=== PATIENT | female | born 1980 | race Caucasian/White ===

== ENCOUNTER 2020-04-27 12:00 | Outpatient (CLI) | payer OTHER | END 2020-04-27 23:59 | disposition home or self-care (01) | LOC: LAB.R 12:00 | PROVIDERS: ATTEND Midwife | DX: Z34.01 Encounter for supervision of normal first pregnancy, first trimester (principal) | CPT/HCPCS: 84144; 84702 ==

== ENCOUNTER 2020-12-07 16:45 | Outpatient (CLI) | payer OTHER ==
--- NOTE | 2020-12-08 16:49 | Ultrasound Report ---
PROCEDURE: OB Biophysical Profile INDICATIONS: POSTDATES, JACOBO AND BPP OUTSIDE/PRIOR DATING DATA: Last menstrual period (LMP): 02/29/2020. LMP-based estimated date of delivery (ANNE): 12/05/2020. First dating scan (date and location): 05/04/2020, [facility]. Estimated date of delivery (ANNE) from first dating scan: 12/05/2020. The below data below was generated using the above ANNE of 12/05/2020 TECHNIQUE: Real-time scanning was performed of the fetus, with image documentation and biometric amena surements. Biophysical profile was also obtained. Endovaginal scanning: Not needed COMPARISON: No images available for review. FINDINGS: General: A single living intrauterine gestation is present. Presentation: Vertex Placenta: Placental position is anterior, without previa. Amniotic fluid index: 8.9 cm, normal for gestational age. Largest pocket 3.4 cm. heart rate: 145 beats per minute. Maternal cervical canal: Not visible due to vertex presentation of the fetus. Biophysical profile: Tone: 2 points. Movement: 2 points. Respiration: 2 points. Largest pocket of fluid: 2 points. IMPRESSION: Normal biophysical profile of 8 out of 8 possible points. Amniotic fluid index measures 8.9 cm. Systo lic/diastolic ratio of the umbilical artery at the placenta, mid cord, and abdominal wall range s from 2.2 to 3.0, normal. Reviewed by: Denzel Shelton MD on 12/08/2020 4:48 PM PDT Approved by: Denzel Shelton MD on 12/08/2020 4:48 PM PDT Station ID: [id number]
== END 2020-12-07 16:46 | disposition home or self-care (01) ==
LOC: DI 16:45
PROVIDERS: ATTEND Midwife
DX: Z34.03 Encounter for supervision of normal first pregnancy, third trimester (principal)